=== PATIENT | female | born 1960 | race Caucasian/White ===

== ENCOUNTER → 2023-12-04 15:21 | Outpatient (REF) | payer BC, SELFPAY | LOC: HWRAD 15:21 | PROVIDERS: ATTENDING PHYSICIAN Nurse Practitioner Family | DX: Z00.00 Encounter for general adult medical examination without abnormal findings (principal); Z12.31 Encounter for screening mammogram for malignant neoplasm of breast; M85.80 Other specified disorders of bone density and structure, unspecified site | CPT/HCPCS: 77063; 77067; 77080 ==

== ENCOUNTER → 2024-12-16 13:42 | Outpatient (REF) | payer BC, SELFPAY | LOC: HWWDC 13:42 | PROVIDERS: ATTENDING PHYSICIAN Hospitalist | DX: Z12.31 Encounter for screening mammogram for malignant neoplasm of breast (principal) | CPT/HCPCS: 77063; 77067 ==

== ENCOUNTER → 2024-12-16 13:46 | Outpatient (REF) | payer SELFPAY | LOC: HWRAD 13:46 | PROVIDERS: ATTENDING PHYSICIAN Hospitalist | DX: E78.49 Other hyperlipidemia (principal) | CPT/HCPCS: 75571 ==